=== PATIENT | male | born 1985 | race Caucasian/White ===

== ENCOUNTER → 2023-05-03 12:57 | Outpatient (CLI) | payer OTHER, SELFPAY ==
[2023-05-03 13:35] LABS: Semen Sperm Prescence Post-Vas Absent (ABSENT)
== END ==
LOC: LAB 13:00
PROVIDERS: Referring Provider Specialist; Visit Provider Specialist
DX: Z98.52 Vasectomy status (principal)
CPT/HCPCS: 89321